=== PATIENT | female | born 1975 | race Caucasian/White ===

== ENCOUNTER 2022-03-05 14:51 | Emergency (ER) | payer OTHER ==
[2022-03-05 15:06] LABS: HEMOGLOBIN 13.2 gm/dl (12.3-15.3); RED BLOOD COUNT 4.57 M/UL (4.00-5.10); WHITE BLOOD COUNT 14.8 K/UL (4.5-11.0)
[2022-03-05 15:25] LABS: BUN/CREATININE RATIO 11 (0-10)
[2022-03-05] MEDS ORDERED: NARCAN4 MG (19:49)
[2022-03-05] MEDS ORDERED: AMOXICILLIN250 M1 PO (20:02)
[2022-03-05] MEDS ORDERED: DIFLUCAN150 MG PO (20:21)
== END 2022-03-05 20:25 | disposition home or self-care (01) ==
LOC: ER1 14:51
PROVIDERS: Family Medicine
DX: T40.1X1A Poisoning by heroin, accidental (unintentional), initial encounter (principal)
CPT/HCPCS: 71045; 80053; 80307; 81001; 85025; 99284; G0480